=== PATIENT | male | born 1980 | race Caucasian/White ===

== ENCOUNTER 2016-08-21 22:11 | Emergency (ER) | payer OTHER ==
[2016-08-21 22:35] VITALS: BP 136/81; PULSE 102; TEMP 98.4; BMI 29.8
[2016-08-21] MEDS ORDERED: METHOCARBAMOL 500 MG TABLET PO ONE (22:50)
[2016-08-21] MEDS ORDERED: IBUPROFEN 600 MG TABLET (FP) PO ONE ×2 (22:50→22:59)
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
[2016-08-21] MEDS ORDERED: METHOCARBAMOL 500 MG TABLET ONE (22:59)
== END 2016-08-21 23:11 | disposition home or self-care (01) ==
LOC: JER 22:11
DX: S13.4XXA Sprain of ligaments of cervical spine, initial encounter (principal); V43.52XA Car driver injured in collision with other type car in traffic accident, initial encounter; Y92.414 Local residential or business street as the place of occurrence of the external cause; Y93.89 Activity, other specified; Y99.9 Unspecified external cause status
CPT/HCPCS: 99282-25

== ENCOUNTER 2018-08-10 19:49 | Emergency (ER) | payer OTHER ==
--- NOTE | 2018-08-10 20:18 | PDOC ---
Rapid Medical Evaluation Time Seen by Provider: 08/10/18 20:16 Medical Evaluation: Allergies Allergy/AdvReac Type Severity Reaction Status Date / Time No Known Allergies Allergy Verified 08/21/16 22:15 08/10/18 20:16 I have performed a brief in-person evaluation of this patient. The patient presents with a chief complaint of: burning with urination x 2 weeks with back pain Pertinent physical exam findings:NAD I have ordered the following: UA and Cx The patient will proceed to the ED for further evaluation. Discharge Disposition - Diagnosis Dysuria - Referrals - Patient Instructions - Post Discharge Activity
[2018-08-10 20:24] VITALS: BP 129/83; PULSE 93; TEMP 98.2; BMI 22.6
[2018-08-10 20:47] LABS: URINE APPEARANCE CLOUDY; URINE BILIRUBIN NEGATIVE (<2.0 mg/dL); URINE COLOR LTYELLOW; URINE GLUCOSE (UA) NEGATIVE (NEGATIVE); URINE KETONE NEGATIVE (NEGATIVE); URINE LEUK ESTERASE NEGATIVE (NEGATIVE); URINE NITRITE NEGATIVE (NEGATIVE); URINE PROTEIN NEGATIVE (NEGATIVE); URINE UROBILINOGEN NEGATIVE mg/dL (0.2-1.0)
--- NOTE | 2018-08-10 21:59 | PDOC ---
History of Present Illness - General Chief Complaint: Pain, Acute Stated Complaint: Urinary Problem Time Seen by Provider: 08/10/18 20:16 History Source: Patient Exam Limitations: No Limitations Past History - Past Medical History Allergies/Adverse Reactions: Allergies Allergy/AdvReac Type Severity Reaction Status Date / Time No Known Allergies Allergy Verified 08/21/16 22:15 Home Medications: Ambulatory Orders Ibuprofen [Motrin -] 600 mg PO TID #21 tablet 08/21/16 Methocarbamol [Robaxin -] 500 mg PO TID #21 tablet 08/21/16 Anemia: No Cancer: No Cardiac Disorders: No CVA: No COPD: No CHF: No - Surgical History Cholecystectomy: No Gastric Stapling: No GI Surgery: No Lung Surgery: No - Immunization History Immunization Up to Date: Yes - Suicide/Smoking/Psychosocial Hx Smoking Status: No Smoking History: Never smoked Have you smoked in the past 12 months: No Number of Cigarettes Smoked Daily: 0 Information on smoking cessation initiated: No Hx Alcohol Use: No Drug/Substance Use Hx: No Substance Use Type: None *Physical Exam - Vital Signs Last Vital Signs Temp Pulse Resp BP Pulse Ox 98.2 F 93 H 20 129/83 100 08/10/18 20:18 08/10/18 20:18 08/10/18 20:18 08/10/18 20:18 08/10/18 20:18 - Physical Exam General Appearance: No: Apparent Distress Respiratory/Chest: positive: Lungs Clear, Normal Breath Sounds. negative: Respiratory Distress Cardiovascular: positive: Regular Rhythm, Regular Rate, S1, S2. negative: Murmur Gastrointestinal/Abdominal: positive: Normal Bowel Sounds, Soft. negative: Tender, Distended, Guarding, Rebound Male Genitalia: positive: normal genitalia, other (no rash noted along penis). negative: discharge, testicular tenderness, testicular mass, epididymus tender Musculoskeletal: negative: CVA Tenderness Integumentary: positive: Normal Color Neurologic: positive: Alert, Normal Mood/Affect Moderate Sedation - Procedure Monitoring Vital Signs: Procedure Monitoring Vital Signs Temperature 98.2 F 08/10/18 20:18 Pulse Rate 93 H 08/10/18 20:18 Respiratory Rate 20 08/10/18 20:18 Blood Pressure 129/83 08/10/18 20:18 O2 Sat by Pulse Oximetry (%) 100 08/10/18 20:18 ED Treatment Course - ADDITIONAL ORDERS Additional order review: Laboratory Results 08/10/18 20:30 Urine Color Ltyellow Urine Appearance Cloudy Urine pH 8.0 Ur Specific [place] 1.011 Urine Protein Negative Urine Glucose (UA) Negative Urine Ketones Negative Urine Blood Negative Urine Nitrite Negative Urine Bilirubin Negative Urine Urobilinogen Negative Ur Leukocyte Esterase Negative Medical Decision Making - Medical Decision Making 38 y/o M with no sig pmh presents with discomfort along dorsal aspect and base of penis x 1 week along with mild dysuria. Also endorses increased urinary frequency. Denies fever, chills, abd pain, n/v, hematuria, testicular pain, penile discharge, rash. Is sexually active with 1 partner; denies hx of STDs. Patient mentions having similar symptoms years ago and having cystoscopy done but nothing was found PE unremarkable; exam normal UA negative Will send GC testing though will not treat as not highly suspicious for STD Will refer to urology for further eval 08/10/18 21:59 *DC/Admit/Observation/Transfer Diagnosis at time of Disposition: Dysuria, Penile pain - Discharge Dispostion Disposition: HOME Condition at time of disposition: Stable Decision to Admit order: No - Referrals Referrals: Sami Mahoney MD [Staff Physician] - Call tomorrow - Patient Instructions Printed Discharge Instructions: DI for Dysuria -- Adult Additional Instructions: Thank you for choosing [facility]. It was a pleasure taking care of you. Your urine test was normal You will called back regarding results of your chlamydia/gonorrhea testing You were referred to urology for further evaluation Return to the Emergency Department if your symptoms worsen or persist, you have fever, shortness of breath, chest pain, severe abdominal pain, vomiting, blood in urine or other concerning symptoms. - Post Discharge Activity
--- NOTE | 2018-08-10 22:22 | PDOC ---
*Physical Exam - Vital Signs Last Vital Signs Temp Pulse Resp BP Pulse Ox 98.2 F 93 H 20 129/83 100 08/10/18 20:18 08/10/18 20:18 08/10/18 20:18 08/10/18 20:18 08/10/18 20:18 ED Treatment Course - ADDITIONAL ORDERS Additional order review: Laboratory Results 08/10/18 20:30 Urine Color Ltyellow Urine Appearance Cloudy Urine pH 8.0 Ur Specific [place] 1.011 Urine Protein Negative Urine Glucose (UA) Negative Urine Ketones Negative Urine Blood Negative Urine Nitrite Negative Urine Bilirubin Negative Urine Urobilinogen Negative Ur Leukocyte Esterase Negative Medical Decision Making - Medical Decision Making 08/10/18 22:21 The patient was seen and evaluated in conjunction with ATILIO Malloy under my direct supervision, ancillary studies were reviewed. I independently evaluated the patient and I agree with the plan as outlined by ATILIO Malloy . *DC/Admit/Observation/Transfer Diagnosis at time of Disposition: Dysuria - Referrals - Patient Instructions - Post Discharge Activity
== END 2018-08-10 23:07 | disposition home or self-care (01) ==
LOC: JER 19:49
DX: R30.0 Dysuria (principal)
CPT/HCPCS: 36415; 81003; 84703; 87086; 87491; 87591; 99282-25